=== PATIENT | male | born 1950 | race Caucasian/White ===

== ENCOUNTER 2023-01-12 12:14 | Emergency (ER) | payer OTHER ==
[~2023-01-12] VITALS: Ht 182.9 cm; Wt 122.9 kg
[~2023-01-12 12:14] MED LIST: ASPIR-MOX 325325 MG PO; ATENOLOL25 MG PO; AVALIDE 150-12.1 TA1 PO; INDERAL LA80 MG PO; KETO10TA2 PO; SYNTHROID175 MCG PO; VYTORIN 10/10 M1 TAB PO
[2023-01-12] MEDS ORDERED: TAMSULOSIN HCL0.4 MG PO (12:58)
[2023-01-12] MEDS ORDERED: SIMVASTATIN20 MG PO (12:58)
[2023-01-12] MEDS ORDERED: METOPROLOL SUCC25 MG PO (12:59)
[2023-01-12] MEDS ORDERED: TOLTERODINE TART4 MG PO (12:59)
== END 2023-01-12 17:20 | disposition home or self-care (01) ==
LOC: ER 12:14
DX: N41.9 Inflammatory disease of prostate, unspecified (principal); R50.9 Fever, unspecified; R32 Unspecified urinary incontinence; Z20.822 Contact with and (suspected) exposure to COVID-19